=== PATIENT | male | born 1950 | race Caucasian/White ===

== ENCOUNTER 2025-03-04 13:46 | Emergency (ER) | payer OTHER, SELFPAY ==
[2025-03-04 13:47] VITALS: BP 175/89; PULSE 63; RESP 16; TEMP 36.8; O2SAT 97; BMI 23.4
--- NOTE | 2025-03-04 14:42 | EX.ED.DYSGE1 ---
HPI <CATRINA Rojas - Last Filed: 03/04/25 16:49> History of Present Illness Chief Complaint: Fall Narrative Narrative: Patient presenting today due to head injury that took place about 3 hours prior to arrival. He reports that he was [facility] [employer] walking around in the basement when he walked into a vent hitting his forehead against it. He has a small abrasion to the right side of his forehead, he reports that his tetanus is up-to-date. He denies LOC, headache, use of blood thinners, nausea, vomiting, visual changes, dizziness, and neck pain. He denies any other injury. He reports that his daughter wanted him to come in to be evaluated. [facility] <CATRINA Rojas Last Filed: 03/04/25 16:49> [facility] Medical History High cholesterol Hypertension Allergy/AdvReac Type Severity Reaction Status Date / Time No Known Allergies Allergy Verified 03/04/25 13:49 Social History household members: none housing: house service: Yes ( ) Smoking Status: Current some day smoker tobacco type: cigarettes ROS <CATRINA Rojas - Last Filed: 03/04/25 16:49> ROS ED Constitutional Constitutional ED: Denies chills or fever(s) Eyes Eyes: Denies change in vision Cardiovascular Cardiovascular: Denies chest pain Respiratory/Chest Respiratory/Chest: Denies dyspnea Gastrointestinal Gastrointestinal: Denies abdominal pain, nausea or vomiting Musculoskeletal Musculoskeletal: Denies neck pain Integumentary Reports Abrasions Neurologic Neurologic: Denies headache(s) or weakness EXAM <CATRINA Rojas - Last Filed: 03/04/25 16:49> Physical Exam Const Vital Signs: 03/04/25 13:47 03/04/25 13:49 03/04/25 14:52 Temperature 98.2 F 98 F Temperature Source Oral Pulse Rate 63 70 Respiratory Rate 16 16 Respiratory Effort Normal Non-Labored Respiratory Depth Normal Respiratory Pattern Normal Blood Pressure 175/89 H 184/94 H Blood Pressure Mean 117 124 Pulse Ox 97 99 Oxygen Delivery Method Room Air Room Air Positive well nourished, well developed and no apparent distress General Appearance ED: well developed HEENT Reports normocephalic, head/scalp atraumatic and TM's clear HEENT Narrative: Small hematoma to the right side of the forehead with a small abrasion, no bleeding to the area. Tympanic Membrane ED: Yes TM's clear bilateral (No hemotympanum, TMs clear bilaterally.) Mouth ED: Yes moist mucous membranes normal Eyes PERRL and EOMs intact bilaterally Neck full ROM and supple Neck Narrative: No midline cervical tenderness. Chest Wall inspection of chest normal Resp normal respiratory effort and clear to auscultation bilaterally Cardio regular rate and regular rhythm Back/Spine normal ROM and normal to inspection Extremity normal to inspection and full ROM Neuro oriented x3, CN's II-XII intact bilaterally, moves all extremities, no focal motor deficits and no sensory deficits noted Sensorium / Orientation: awake and alert Psych mental status grossly normal and thought process normal Skin Skin Narrative: Aside from small abrasion to the right side of the forehead there is no rashes or lesions noted. <Dr. Nicolas Kelly DO - Last Filed: 03/04/25 20:34> Physical Exam Const Vital Signs: 03/04/25 13:47 03/04/25 13:49 03/04/25 14:52 Temperature 98.2 F 98 F Temperature Source Oral Pulse Rate 63 70 Respiratory Rate 16 16 Respiratory Effort Normal Non-Labored Respiratory Depth Normal Respiratory Pattern Normal Blood Pressure 175/89 H 184/94 H Blood Pressure Mean 117 124 Pulse Ox 97 99 Oxygen Delivery Method Room Air Room Air [facility] <CATRINA Rojas - Last Filed: 03/04/25 16:49> [facility] Narrative Medical decision making narrative: Patient presenting due to a head injury that took place about 3 hours ago. He walked into a [facility] at [employer], hitting the right side of his forehead against it. No LOC occurred. He feels well. He is not on any blood thinners. No neck pain. He denies any pain to his head or nausea, vomiting, visual changes, or dizziness. I did offer to perform a CT scan of the head to assess for intracranial bleed. Patient declined. He does not feel that this is necessary. He reports that he only came in because his daughter wanted him to be evaluated. He has a normal neurological exam. I did discuss strict return instructions with him. Patient discharged home in stable condition. <Dr. Nicolas Kelly, DO - Last Filed: 03/04/25 20:34> [facility] MDM Narrative Medical decision making narrative: Patient presenting due to a head injury that took place about 3 hours ago. He walked into a vent at [employer], hitting the right side of his forehead against it. No LOC occurred. He feels well. He is not on any blood thinners. No neck pain. He denies any pain to his head or nausea, vomiting, visual changes, or dizziness. I did offer to perform a CT scan of the head to assess for intracranial bleed. Patient declined. He does not feel that this is necessary. He reports that he only came in because his daughter wanted him to be evaluated. He has a normal neurological exam. I did discuss strict return instructions with him. Patient discharged home in stable condition. ED attending note: I evaluated the patient in conjunction with the JOANA. I agree with his/her statements and above findings. I have personally performed a face to face assessment of the patient and have reviewed the JOANA Note. I performed a substantive portion of the visit including all aspects of the following. I personally saw the patient performed chart review, physical exam, reviewed labs, imaging (if obtained), and formulated a treatment and management plan. History as above. Exam: Alert and oriented x3, neuro exam at baseline, cranial nerves II through XII are intact. No pain with extraocular muscle movement. There is negative test of skew. 5 of 5 strength in upper and lower extremities in flexion extension. Intact sensation to light touch in upper and lower extremity dermatomes. No truncal or extremity ataxia. No dysdiadochokinesia. Normal gait. 2+ reflexes in upper and lower extremities. No meningeal signs. Negative Babinski. NIH of 0. No obvious facial trauma. Midface stable. No jaw malocclusion. No step-offs deformities to the cervical spine. No obvious cephalhematoma noted. MDM/plan: I offered the patient advanced imaging of the head and neck including a CT scan of the head and cervical spine however patient refused. Patient was alert, oriented to person place and time. He had capacity to make his own medical decisions. In the presence of his and significant other he chose to forego additional images at this time. Patient was discharged home with close head injury instructions and strict return precautions. This note was generated with Dragon dictation software. It may contain incorrect words, spelling, and punctuation that were not noted in review of the chart prior to signing. Discharge Plan Triage Chief Complaint: Fall ED Midlevel Provider: Catie Hernandez ED Provider: Nicolas Kelly Dx/Rx/DC Orders Clinical Impression: Head injury, Traumatic hematoma of forehead Instructions: ED Head Injury (Adult), ED Hematoma Primary Care Provider: [facility] [Primary Care Provider] - Activity Restrictions/Additional Instructions: Follow-up with your PCP in the next 5 to 7 days and return for any concerns. Print Language: Polish Disposition Disposition: Home, Self Care Discharge Date/Time: 03/04/25 14:59
[2025-03-04 14:52] VITALS: BP 184/94; PULSE 70; RESP 16; TEMP 36.6; O2SAT 99
== END 2025-03-04 14:59 | disposition home or self-care (01) ==
PROVIDERS: Emergency Provider Emergency Medicine; Visit Provider Emergency Medicine
DX: S00.83XA Contusion of other part of head, initial encounter (principal); W22.09XA Striking against other stationary object, initial encounter; Y93.01 Activity, walking, marching and hiking; Y92.22 Religious institution as the place of occurrence of the external cause; F17.210 Nicotine dependence, cigarettes, uncomplicated
CPT/HCPCS: 99284